=== PATIENT | male | born 2000 | race African-American/Black ===

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

== ENCOUNTER 2021-02-06 22:53 | Emergency (ER) | payer BC, OTHER ==
[2021-02-06 23:34] LABS: Bacteria/HPF None Seen HPF (None Seen); Bilirubin Negative (Negative); Blood, Urine Negative (Negative); Clarity Clear (Clear); Glucose, Urine (Dipstick) Normal (Negative); Ketone, Urine Negative (Negative); Leukocyte 75 Leu/uL (Negative); Nitrite Negative (Negative); Protein, Urine (Dipstick) 20 mg/dL (Neg-Trace); Specific Gravity, Urine 1.029 (1.002-1.036); Squamous Epithelial 0-3 HPF (0-3); Urobilinogen 6 mg/dL (Less than 2); WBC/HPF 21-50 HPF (0-3); pH, Urine 6.5 (5.0-9.0)
[2021-02-07] MEDS ORDERED: cefTRIAXone\\ROCEPHIN 500 MG VIAL ONE (00:37)
[2021-02-07] MEDS ORDERED: Lidocaine 1% PF 5 ML VIAL ONE (00:37)
[2021-02-07 21:42] LABS: Chlam.trachomatis by PCR,Urine DETECTED (NotDetected)
== END 2021-02-07 00:45 | disposition home or self-care (01) ==
LOC: ERS 22:53
DX: N34.2 Other urethritis (principal)
CPT/HCPCS: 81003; 81015; 87491; 87591; 96372; 99283; J0696

== ENCOUNTER 2021-02-08 19:19 | Emergency (ER) | payer BC, OTHER ==
[2021-02-08] MEDS ORDERED: Ibuprofen 800 MG TAB ONE (20:16)
[2021-02-08] MEDS ORDERED: Acetaminophen 500 MG TAB ONE (20:16)
== END 2021-02-08 23:33 | disposition left against medical advice (07) ==
LOC: ERS 19:19
DX: Z53.21 Procedure and treatment not carried out due to patient leaving prior to being seen by health care provider (principal)
CPT/HCPCS: 93005